=== PATIENT | male | born 1975 | race Caucasian/White ===

== ENCOUNTER 2019-01-30 12:18 | Emergency (ER) | payer BC, OTHER ==
[2019-01-30] MEDS: KETOROLAC 30 MG INJ IM (12:26)
[2019-01-30] MEDS: HYDROmorphONE 2 MG/ML SYG IM ×2 (12:26→13:27)
[2019-01-30] MEDS: ONDANSETRON (ODT) 4 MG TAB ODT (12:26)
== END 2019-01-30 16:26 | disposition home or self-care (01) ==
LOC: E/R 12:18
DX: M54.42 Lumbago with sciatica, left side (principal)
CPT/HCPCS: 96372; 99284-25